=== PATIENT | female | born 1955 | race Caucasian/White ===

== ENCOUNTER → 2019-02-19 12:32 | Outpatient (CLI) | payer MEDICARE, OTHER, SELFPAY ==
--- NOTE | 2019-02-19 | DI.MRI.S_ITS ---
PROCEDURE: MR LUMBAR SPINE WO CON INDICATIONS: Spinal stenosis, site unspecified TECHNIQUE: Noncontrast sagittal T1 spin echo and T2 fast echo, sagittal STIR, axial T1 and T2 fast spin echo through the lumbar spine. In cases with scoliosis, additional coronal T2 fast spin echo may be performed. COMPARISON: None. FINDINGS: Image quality: Excellent. Alignment and Curvature: There is normal bony alignment. Bone Marrow: Marrow is of normal overall signal. No acute vertebral body compression fractures. Spinal Cord: Conus medullaris terminates at the T12 level. Visualized cord demonstrates normal signal and size. Paraspinous Soft Tissues: No paravertebral masses. L1-L2: Mild disc desiccation and height loss. Mild facet ligamentum flavum hypertrophy. No canal stenosis. Moderate right and mild left foraminal narrowing. L2-L3: Severe disc desiccation and height loss. Reactive endplate changes. Severe facet and ligamentum flavum hypertrophy. No canal stenosis. Moderate bilateral foraminal stenosis. L3-L4: Severe disc desiccation and height loss. Broad-based disc bulge. Severe facet ligamentum flavum hypertrophy. Mild bilateral foraminal narrowing. L4-L5: Severe disc desiccation and height loss. Broad-based disc bulge. Moderate facet ligamentum flavum hypertrophy. No canal stenosis. Severe right and moderate left foraminal stenosis. L5-S1: Moderate disc desiccation and height loss. Broad-based disc bulge. Mild facet and ligamentum flavum hypertrophy. No canal stenosis. IMPRESSION: 1. Disc desiccation and height loss throughout the lumbar spine most severe at L2-3. 2. No canal stenosis of the lumbar spine. 3. Multilevel facet ligamentum flavum hypertrophy. 4. Moderate right foraminal narrowing at L1-L2, moderate left foraminal stenosis at L4-5, moderate bilateral foraminal narrowing at L2-3, and severe right foraminal stenosis at L4-5. Dictated by: Tere Taylor M.D. on 02/19/2019 at 13:11 Approved by: Tere Taylor M.D. on 02/19/2019 at 13:22
== END ==
PROVIDERS: Visit Provider Family Medicine
DX: M48.061 Spinal stenosis, lumbar region without neurogenic claudication (principal); M51.36 Other intervertebral disc degeneration, lumbar region; R29.890 Loss of height
CPT/HCPCS: 72148